=== PATIENT | male | born 2005 | race African-American/Black ===

== ENCOUNTER 2025-07-29 12:35 | Emergency (ER) | payer MEDICAID ==
[~2025-07-29] VITALS: Ht 188 cm; Wt 75.0 kg
[2025-07-29 12:42] VITALS: O2SAT 98
[2025-07-29 13:02] VITALS: BP 119/74; PULSE 71; RESP 17; TEMP 37.1; O2SAT 100
[2025-07-29 16:46] LABS: INFLUENZA TYPE A Presumptive Negative (Pres. Neg.); INFLUENZA TYPE B Presumptive Negative (Pres. Neg.)
[2025-07-29 16:47] LABS: RESPIRATORY SYNCYTIAL VIRUS Not Detected (Not Detectd)
== END 2025-07-29 15:55 | disposition home or self-care (01) ==
LOC: ER 13:03
DX: J06.9 Acute upper respiratory infection, unspecified (principal); B97.89 Other viral agents as the cause of diseases classified elsewhere; Z20.822 Contact with and (suspected) exposure to COVID-19
CPT/HCPCS: 87420; 87426; 87804; 99283